=== PATIENT | female | born 1945 | race Caucasian/White ===

== ENCOUNTER 2019-06-06 05:48 | Day surgery (SDC) | payer MEDICARE ==
[~2019-06-06] VITALS: Ht 167.6 cm; Wt 75.0 kg
[2019-06-06] VITALS (22 sets, daily range): BP systolic 96–129; BP diastolic 27–83
[2019-06-06] MEDS ORDERED: lidocaine 2% viscous 15 ML cup ***bronch room only MM ONE ×2 (06:10→07:32)
[2019-06-06] MEDS ORDERED: morphine 10mg/ml inj. IM ONE (06:10)
[2019-06-06] MEDS ORDERED: LIDOCAINE 4% (40MG/ML) topical solution 50ml **BRONCH ONLY MM ONE (06:10)
[2019-06-06] MEDS ORDERED: phenylephrine 1% Nasal spray (extra-strength) 15 ML bottle **bronch room NS ONE ×2 (06:10→07:33)
[2019-06-06 06:29] LABS: BASOPHILS # (AUTO) 0.1 X10'3 (0-0.2); BASOPHILS % (AUTO) 0.9 % (0-1); EOSINOPHILS # (AUTO) 0.2 X10'3 (0-0.9); EOSINOPHILS % (AUTO) 2.5 % (0-6); HEMATOCRIT 49.7 % (35.0-45.0); HEMOGLOBIN 17.1 g/dl (12.0-16.0); LYMPHOCYTES # (AUTO) 2.4 X10'3 (1.1-4.8); LYMPHOCYTES % (AUTO) 25.3 % (21-51); MEAN CORPUSCULAR HEMOGLOBIN 32.1 PG (27.0-31.0); MEAN CORPUSCULAR HGB CONC 34.4 g/dL (33.0-36.5); MEAN CORPUSCULAR VOLUME 93.2 FL (78-98); MEAN PLATELET VOLUME 8.6 FL (7.4-10.4); MONOCYTES # (AUTO) 0.8 X10'3 (0-0.9); NEUTROPHILS # (AUTO) 6.1 X10'3 (1.8-7.7); NEUTROPHILS % (AUTO) 63.3 % (42-75); PLATELET COUNT 235 X10'3 (140-440); RED BLOOD COUNT 5.33 X10'6 (4.20-5.60); RED CELL DISTRIBUTION WIDTH 13.3 % (11.5-14.5); WHITE BLOOD COUNT 9.6 X10'3 (4.5-11.0)
[2019-06-06] MEDS ORDERED: ATOR40TA71 PO (06:43)
[2019-06-06] MEDS ORDERED: ASPI-1265 PO (06:43)
[2019-06-06] MEDS ORDERED: CITA20TA28 PO (06:43)
[2019-06-06] MEDS ORDERED: CLON-528 PO (06:43)
[2019-06-06] MEDS ORDERED: LEVO125T PO (06:43)
[2019-06-06 06:49] LABS: ALANINE AMINOTRANSFERASE 44 U/L (12-78); ALBUMIN 3.6 G/DL (3.4-5.0); ALBUMIN/GLOBULIN RATIO 0.9 (1.1-1.5); ALKALINE PHOSPHATASE 153 IU/L (46-116); ANION GAP 12 (8-16); ASPARTATE AMINO TRANSFERASE 30 U/L (10-37); BILIRUBIN,TOTAL 1.1 MG/DL (0.1-1.0); BLOOD UREA NITROGEN 12 MG/DL (7-18); CALCIUM 9.5 MG/DL (8.5-10.1); CHLORIDE 109 MMOL/L (99-107); GLUCOSE 115 MG/DL (70-104); POTASSIUM 3.9 MMOL/L (3.5-5.1); SODIUM 145 MMOL/L (135-145); TOTAL CARBON DIOXIDE 24.4 MMOL/L (24-32); TOTAL PROTEIN 7.7 G/DL (6.4-8.2); eGFR 44 ML/MIN
[2019-06-06] MEDS ORDERED: MIDAZolam 5mg/ml 2ml vial IV ONE (07:30)
[2019-06-06] MEDS ORDERED: LIDOCAINE 4% (40MG/ML) topical solution 50ml **BRONCH ONLY ONE (07:33)
== END 2019-06-06 10:40 | disposition home or self-care (01) ==
LOC: SSTAY O 05:48
PROVIDERS: ATTEND Internal Medicine Pulmonary Disease
DX: R91.8 Other nonspecific abnormal finding of lung field (principal); C34.01 Malignant neoplasm of right main bronchus; C79.51 Secondary malignant neoplasm of bone; J44.9 Chronic obstructive pulmonary disease, unspecified; G47.30 Sleep apnea, unspecified; I25.10 Atherosclerotic heart disease of native coronary artery without angina pectoris; I10 Essential (primary) hypertension; F17.210 Nicotine dependence, cigarettes, uncomplicated; Z79.899 Other long term (current) drug therapy; Z90.710 Acquired absence of both cervix and uterus; Z95.5 Presence of coronary angioplasty implant and graft
CPT/HCPCS: 31629; 36415; 80053; 82378; 85025; 85651; 87070; 88341; 88342; 94640; 94760; J2250; J2270; 31622; 31628; 76499; 88173; 88305